=== PATIENT | male | born 1985 | race African-American/Black ===

== ENCOUNTER 2020-03-30 09:39 | Emergency (ER) | payer OTHER ==
[~2020-03-30] VITALS: Ht 180.3 cm; Wt 68.0 kg
--- NOTE | 2020-03-30 09:48 | NUR ---
Patient discharged to home in stable condition. Written and verbal after care instructions given. Patient verbalizes understanding of instructions. Stressed follow up or return to ER for worsening s/s.pt in custody of [facility].
== END 2020-03-30 09:49 ==
LOC: ER 09:39
DX: M25.512 Pain in left shoulder (principal); M25.511 Pain in right shoulder
CPT/HCPCS: A4663